=== PATIENT | male | born 1945 | race Caucasian/White ===

== ENCOUNTER 2017-02-22 11:46 | Emergency (ER) | payer OTHER ==
[~2017-02-22] VITALS: Ht 185.4 cm; Wt 97.8 kg
[~2017-02-22 11:46] MED LIST: ATARAX,VISTARIL50 MG PO; NAPROSYN500 MG PO; PREDNISONE20 MG PO; SINGULAIR10 MG PO; ULTRAM50 MG PO; ZANTAC150 MG PO
[2017-02-22] MEDS ORDERED: MOTRIN600 MG PO (15:14)
[2017-02-22] MEDS ORDERED: PERCOCET 5/31 TABLET PO (15:14)
[2017-02-22 15:38] VITALS: BP 124/83
== END 2017-02-22 16:25 | disposition home or self-care (01) ==
LOC: EME 11:46
DX: S39.012A Strain of muscle, fascia and tendon of lower back, initial encounter (principal); M54.41 Lumbago with sciatica, right side; S83.421A Sprain of lateral collateral ligament of right knee, initial encounter; M23.91 Unspecified internal derangement of right knee; S96.911A Strain of unspecified muscle and tendon at ankle and foot level, right foot, initial encounter; W10.9XXA Fall (on) (from) unspecified stairs and steps, initial encounter; M16.11 Unilateral primary osteoarthritis, right hip
CPT/HCPCS: 72131; 72192; 73564; 73630; 99281; 99284; J3010